=== PATIENT | female | born 1970 | race Caucasian/White ===

== ENCOUNTER 2024-05-17 15:28 | Emergency (ER) | payer MEDICARE, OTHER ==
[~2024-05-17] VITALS: Ht 162.6 cm; Wt 54.4 kg
[2024-05-17] MEDS ORDERED: PERM60CR6 TP (16:11)
[2024-05-17] MEDS ORDERED: MUPI15CR TP (16:11)
[2024-05-17 17:07] VITALS: BP 135/80; TEMP 98.1; O2SAT 100
== END 2024-05-17 17:08 | disposition home or self-care (01) ==
LOC: ER 15:33
DX: R21 Rash and other nonspecific skin eruption (principal)

== ENCOUNTER 2024-06-04 08:23 | Emergency (ER) | payer MEDICARE, OTHER ==
[~2024-06-04] VITALS: Ht 162.6 cm; Wt 55.3 kg
[~2024-06-04 08:23] MED LIST: MUPI15CR TP; PERM60CR6 TP
[2024-06-04 09:23] VITALS: BP 140/90; TEMP 98.3
[2024-06-04] MEDS ORDERED: HYDR28.32 TP (09:27)
[2024-06-04] MEDS ORDERED: TERB30CR8 TP (09:27)
[2024-06-04] MEDS ORDERED: HYDROCORTISONE 1% CREAM 28.35 GM TUBE TP ONE (09:28)
[2024-06-04] MEDS: HYDROCORTISONE 2.5% CREAM 28.4 GM TUBE TP SCH (09:45)
[2024-06-04 09:51] VITALS: O2SAT 95
== END 2024-06-04 09:52 | disposition home or self-care (01) ==
LOC: ER 08:35
DX: R21 Rash and other nonspecific skin eruption (principal)